=== PATIENT | male | born 1980 | race Caucasian/White ===

== ENCOUNTER → 2024-08-17 | Outpatient (CLI) | payer OTHER ==
--- NOTE | 2024-08-17 17:14 | HMCIMG ---
MR SPINAL CANAL, LUMBAR WO CON HISTORY: No additional history given. COMPARISON: None TECHNIQUE: MRI of the lumbar spine was performed utilizing multiple pulse sequences in axial , coronal and sagittal plane. Patient was not given contrast through intravenous route. FINDINGS: No abnormal signal intensity is seen of the visualized bony structure. No loss of vertebral height is seen. There is straightening of normal lumbar curvature which may be related to muscle spasm or positioning. Degenerative disc signals are present at L3-4, L4-5 and L5-S1 levels. Visualized distal conus is unremarkable. At the L4-5 level, there is minimal annular disc bulge with bilateral ligamentum flavum hypertrophy causing anterior thecal sac compression without associated neural foramina stenosis. The thecal sac measures approximately 11 mm in its anterior posterior dimension. At the L5-S1 level, there is right of center disc herniation/extrusion measuring 1.7 x 0.93 x 2.5 centimeter causing right-sided nerve root encroachment and right neural foraminal stenosis. The thecal sac measures approximately 10.9 mm in its anterior posterior dimension. IMPRESSION: 1. Large right central disc herniation/extrusion at L5-S1 level causing right-sided nerve root encroachment with right neural foraminal stenosis.
== END | disposition home or self-care (01) ==
LOC: RAH 16:03
PROVIDERS: ATTEND Physical Medicine & Rehabilitation
DX: M48.07 Spinal stenosis, lumbosacral region (principal)
CPT/HCPCS: 72148

== ENCOUNTER → 2024-10-25 | Outpatient (CLI) | payer OTHER ==
--- NOTE | 2024-10-25 16:29 | HMCIMG ---
CT LUMBAR SPINE W/O CONTRAST HISTORY: Intervertebral disc disorder COMPARISON: None TECHNIQUE: Multiple sequential axial images of the lumbar spine were obtained including post processing sagittal and coronal reconstruction images. Patient was not given contrast through intravenous route. Three-dimensional reconstruction images were obtained. FINDINGS: Disc space narrowing is seen at the L5-S1 level. There is no loss of vertebral height. Evaluation for disc and cord pathology is limited with CT study. No evidence of fracture or dislocation is seen. IMPRESSION: 1. No fracture is seen. CT was performed with one or more following dose reduction techniques: automated exposure control, adjustment of the mA and kv according to patient's size, or use of a iterative reconstruction technique.
== END | disposition home or self-care (01) ==
LOC: RAH 14:18
PROVIDERS: ATTEND Physical Medicine & Rehabilitation
DX: M48.07 Spinal stenosis, lumbosacral region (principal); M51.16 Intervertebral disc disorders with radiculopathy, lumbar region; M53.2X6 Spinal instabilities, lumbar region
CPT/HCPCS: 72131

== ENCOUNTER → 2024-10-31 | Outpatient (CLI) | payer OTHER ==
--- NOTE | 2024-10-31 13:09 | HMCIMG ---
LUMBAR W FLEXION/EXTENSION REASON: Intervertebral disc disorders with radiculopathy, lumbar region; COMPARISON: None TECHNIQUE: 4 lumbar spine views were obtained including flexion and extension. FINDINGS: There are normal appearing lumbar vertebral bodies. Interspace heights are preserved. Alignment is normal in the neutral view. There are no compression fractures. There is limited range of motion on flexion and extension. Posterior vertebral body alignment is preserved on standing views as well as flexion and extension views. IMPRESSION: 1. Normal views of the lumbar spine including flexion and extension.
== END | disposition home or self-care (01) ==
LOC: RAH 10:58
PROVIDERS: ATTEND Physical Medicine & Rehabilitation
DX: M51.16 Intervertebral disc disorders with radiculopathy, lumbar region (principal); M53.2X6 Spinal instabilities, lumbar region
CPT/HCPCS: 72114